=== PATIENT | female | born 1935 | race African-American/Black ===

== ENCOUNTER → 2020-12-21 | Outpatient (CLI) | payer OTHER ==
--- NOTE | 2020-12-21 14:35 | RAD ---
EXAM: RENAL/RETROPERITONAL ULTRASOUND. HISTORY: Renal lesion on CT. COMPARISON: 01/15/2010. No recent comparison CTs available. FINDINGS: Ultrasound of the kidneys, bladder and retroperitoneum was performed. The right kidney measures 8.2 cm. Cortical echogenicity appears mildly increased. Cortical thickness is preserved. There is no hydronephrosis. The left kidney measures 8.5 cm. Cortical echogenicity appears mildly increased. Cortical thickness i s preserved. There is no hydronephrosis. The bladder is partially decompressed but demonstrates moderate wall thickening. The abdominal aorta and inferior vena cava are grossly patent and normal in caliber. Hepatic cysts are incidentally noted and appear benign. IMPRESSION: 1. No focal renal lesions are appreciated sonographically. Correlate for the site of concern. 2. Both kidneys measure somewhat small suggesting atrophy. Increased cortical echogenicity is consist ent with intrinsic renal disease. Electronically signed by: Brenda Fishman MD (12/21/2020 2:33 PM) [id number]
== END ==
LOC: US 09:44
PROVIDERS: ATTEND Internal Medicine
DX: N28.1 Cyst of kidney, acquired (principal); N28.9 Disorder of kidney and ureter, unspecified
CPT/HCPCS: 76770

== ENCOUNTER → 2021-06-02 | Outpatient (CLI) | payer MEDICAID ==
--- NOTE | 2021-06-03 17:29 | RAD ---
Bilateral digital screening 2-D and 3-D (digital breast tomosynthesis) mammogram: Reason for examination: Routine screening. Comparison: Previous mammograms were performed many years ago and are not available. Interpretation was made with the benefit of CAD. FINDINGS: Breast density: Category B. There are scattered areas of fibroglandular density. There is an irregular spiculated mass versus areas of scarring in the 12:30 position of the left juliane st about 1 cm from the nipple at middle depth. This contains few benign calcifications. There are add itional small oval circumscribed masses in both breasts that are likely due to cysts or other benign lesions. No malignant appearing calcifications, or architectural distortion is seen. IMPRESSION: Irregular spiculated mass versus scarring from previous benign biopsy in the 12:30 position of the le ft breast middle depth. Further evaluation with the targeted left breast ultrasound is recommended. T he location of scarring from previous incision should be noted. Assessment: BI-RADS 0. Incomplete. Additional imaging is recommended. Recommendation: Targeted left breast ultrasound, including left axilla. The patient will be notified of results and asked to return for additional imaging. The patient will receive a letter with the results in the mail. Patient information will be entered into the mammography reminder system with a target recall date fo r the next mammogram. A reminder letter will be generated. Electronically signed by: Leona Simpson MD (06/03/2021 5:27 PM) [id number]
== END ==
LOC: MAMMO 09:41
PROVIDERS: ATTEND Internal Medicine
DX: Z12.31 Encounter for screening mammogram for malignant neoplasm of breast (principal)
CPT/HCPCS: 77063; 77067

== ENCOUNTER → 2021-06-16 | Outpatient (CLI) | payer MEDICAID ==
--- NOTE | 2021-06-16 14:13 | RAD ---
INDICATION: 85 year-old female presents TECHNIQUE: Targeted high resolution sonography of the regions of clinical concern was performed. COMPARISON: None ULTRASOUND FINDINGS: Targeted ultrasound of the left breast 1:00 position, 2-3 cm from the nipple: A hypoechoic irregular mass and non circumscribed margins is p resent measuring 0.6 x 0.8 x 0.4 cm. Enlarged left axillary lymph nodes are also seen, for example a 1.8 x 1.1 cm left axillary lymph node is seen. IMPRESSION: Suspicious finding. RECOMMENDATION: Ultrasound-guided biopsy of the left breast mass and left axillary lymph node recomme nded. BI-RADS 4: Suspicious Electronically signed by: Omero Borja MD (06/16/2021 2:11 PM) [id number]
== END ==
LOC: US 13:06
PROVIDERS: ATTEND Internal Medicine
DX: N63.21 Unspecified lump in the left breast, upper outer quadrant (principal); R59.0 Localized enlarged lymph nodes
CPT/HCPCS: 76641